=== PATIENT | male | born 1950 | race Caucasian/White ===

== ENCOUNTER → 2021-05-29 | Emergency (ER) | payer BC ==
[~2021-05-29] VITALS: Ht 180.3 cm; Wt 73.5 kg
== END | disposition home or self-care (01) ==
LOC: ER 12:50
DX: R05 Cough (principal); U07.1 COVID-19; I10 Essential (primary) hypertension; E78.5 Hyperlipidemia, unspecified; I34.1 Nonrheumatic mitral (valve) prolapse; G47.30 Sleep apnea, unspecified; Z95.5 Presence of coronary angioplasty implant and graft
CPT/HCPCS: 93005; 99282